=== PATIENT | female | born 1955 | race Hispanic/Latino ===

== ENCOUNTER → 2020-08-30 | Outpatient (CLI) | payer OTHER ==
[~2020-08-30] MED LIST: ASPI-1012 PO; ATOR10TA69 PO; CALC-1009 PO; GLIM2TAB30 PO; HYDR-2132 PO; LISI2.5T2 PO; METF-446 PO
== END | disposition home or self-care (01) ==
LOC: RAH 10:11
PROVIDERS: ATTEND Family Medicine
DX: Q70.21 Fused toes, right foot (principal)
CPT/HCPCS: 73620